=== PATIENT | female | born 1965 | race Caucasian/White ===

== ENCOUNTER 2020-08-24 07:04 | Day surgery (SDC) | payer BC ==
[~2020-08-24 07:04] MED LIST: Bupivacaine 0.5% 50 ML MDV ONE; Lidocaine 1% with EPINEPHrine 1:100,000 50 ML MDV ONE
[2020-08-24] MEDS ORDERED: Acetaminophen 500 MG Tab PO ONE (07:30)
[2020-08-24] MEDS ORDERED: Dextrose 5%-Lactated Ringers 1,000 ML IV SCH (07:45)
[2020-08-24] MEDS ORDERED: Rocuronium 50 MG/5 ML Vial ONE (07:48)
[2020-08-24] MEDS ORDERED: fentaNYL 250 MCG/5 ML SDV ONE (07:48)
[2020-08-24] MEDS ORDERED: Dexamethasone 4 MG/ML SDV ONE (07:48)
[2020-08-24] MEDS ORDERED: Succinylcholine 200 MG/10 ML MDV ONE (07:48)
[2020-08-24] MEDS ORDERED: Neostigmine Methylsulfate 1 MG/ML 5 ML Syringe ONE (07:48)
[2020-08-24] MEDS ORDERED: Ondansetron 4 MG/2 ML SDV ONE (07:48)
[2020-08-24] MEDS ORDERED: Propofol 200 MG/20 ML SDV ONE (07:48)
[2020-08-24] MEDS ORDERED: Glycopyrrolate 0.2 MG/ML 5 ML MDV ONE (07:48)
[2020-08-24] MEDS ORDERED: ceFAZolin 2 GM in Premix Bag 1 BAG IV ONE (08:30)
[2020-08-24] MEDS ORDERED: Acetaminophen/HYDROcodone 325-5 MG Tab PO ONE (11:30)
--- NOTE | 2020-08-30 14:13 | OR ---
DATE OF PROCEDURE: 08/24/2020 SURGEON: Eduin Recio MD PREOPERATIVE DIAGNOSIS: Soft tissue mass of the right mid back. POSTOPERATIVE DIAGNOSIS: Subfascial soft tissue mass of right mid back located inferior to inferior ankle and scapula. OPERATIVE PROCEDURE: Excision of subfascial soft tissue mass of right mid back ([id number]). ANESTHESIA: General. INDICATIONS FOR PROCEDURE: This is a 55-year-old presenting with an enlarging soft tissue mass on the right back. This is located just inferior to the scapula. Plan is to proceed with excision of this. With this fairly large, we will plan on general anesthetic. Potential risks of the procedure including bleeding, infection, local recurrence of the process were reviewed, and the patient wishes to proceed. DETAILS OF PROCEDURE: The patient was taken to the operating room, and after general endotracheal anesthesia was induced, she was placed in a left lateral decubitus position, and the back area was then prepped and draped. A transversely oriented incision was made and carried down through the skin and subcutaneous tissue. The mass was then noted to be behind the muscles. The trapezius and then infraspinous muscles were then in the direction of fibers and a white mass was then encountered. This was gradually dissected free and came out in what appeared to be an intact manner. This was extended slightly underneath the inferior aspect of the scapula, and otherwise was directly overlying the periosteum of the ribs. Again, mass came out intact and on measuring, it was noted to be 10.2 cm in maximal dimension. The area was irrigated with antibiotic-containing saline solution. The musculature was then reapproximated with 2-0 Vicryl stitch, subcutaneous tissue with 3-0 Vicryl stitch, and the skin with faheem. Dressing was applied. The patient was taken to the recovery room in satisfactory condition. There were no evident complications. Eduin Recio MD /[id number]
== END 2020-08-24 12:55 | disposition home or self-care (01) ==
LOC: JP.SDS 07:04
PROVIDERS: ATTEND Surgery
DX: D36.7 Benign neoplasm of other specified sites (principal)
CPT/HCPCS: 21933; A9270; J0690; J1100; J2020; J2405; J2704; J2710; J3010; J3490; J7121; 88305; 88313; 88342; J0330

== ENCOUNTER 2021-01-14 16:22 | Emergency (ER) | payer BC ==
[2021-01-14] MEDS ORDERED: fentaNYL 100 MCG/2 ML SDV IM ONE (16:50)
--- NOTE | 2021-01-14 17:01 | EDM.PDOC ---
ED HPI GENERAL MEDICAL PROBLEM - General Chief Complaint: Upper Extremity Injury/Pain Stated Complaint: LT WRIST PAIN Time Seen by Provider: 01/14/21 16:55 Source of Information: Reports: Patient, Family, RN Notes Reviewed History Limitations: Reports: No Limitations - History of Present Illness INITIAL COMMENTS - FREE TEXT/NARRATIVE: 55-year-old female presents emergency department today with complaint of left wrist pain she was cross-country skiing lost control fell on outstretched hand now she has pain in the left wrist no obvious deformity - Related Data Allergies Allergy/AdvReac Type Severity Reaction Status Date / Time No Known Allergies Allergy Verified 01/14/21 16:44 Home Meds: Home Meds Estrogens, Conjugated [Premarin] 0.625 mg VAG DAILY PRN 08/22/20 [History] Past Medical History HEENT History: Reports: Impaired Vision Cardiovascular History: Reports: None Respiratory History: Reports: None Gastrointestinal History: Reports: None Genitourinary History: Reports: None HAND CARVER History: Reports: None Musculoskeletal History: Reports: Fracture Neurological History: Reports: None Psychiatric History: Reports: None Endocrine/Metabolic History: Reports: None Hematologic History: Reports: None Immunologic History: Reports: None Oncologic (Cancer) History: Reports: None Dermatologic History: Reports: None - Infectious Disease History Infectious Disease History: Reports: Chicken Pox - Past Surgical History HEENT Surgical History: Reports: None Cardiovascular Surgical History: Reports: None Respiratory Surgical History: Reports: None GI Surgical History: Reports: Colonoscopy Female Surgical History: Reports: None Endocrine Surgical History: Reports: None Neurological Surgical History: Reports: None Musculoskeletal Surgical History: Reports: None Oncologic Surgical History: Reports: None Dermatological Surgical History: Reports: Other (See Below) Social & Family History - Family History HEENT: Reports: None Cardiac: Reports: Aneurysm Respiratory: Reports: None GI: Reports: None : Reports: None Musculoskeletal: Reports: None Neurological: Reports: None Psychiatric: Reports: Bipolar, Depression Endocrine/Metabolic: Reports: None Hematologic: Reports: None Immunologic: Reports: None Dermatologic: Reports: None Oncologic: Reports: Skin - Tobacco Use Tobacco Use Status *Q: Never Tobacco User - Caffeine Use Caffeine Use: Reports: Coffee Review of Systems - Review of Systems Review Of Systems: See Below Musculoskeletal: Reports: Joint Pain (Left wrist) ED EXAM, GENERAL - Physical Exam Exam: See Below Free Text/Narrative:: Examination of the left wrist subtle deformity is appreciated radial pulses +2 limited range of motion of the wrist secondary to pain full range of motion of all digits no tenderness at the elbow Exam Limited By: No Limitations General Appearance: Alert, WD/WN, No Apparent Distress ED TRAUMA EXTREMITY PROCEDURES - Splinting Left Upper Extremity Splint Site: Wrist Pre-Procedure NV Status: Normal Post-Procedure NV Status: Normal Splint Material: Fiberglass Splint Design: Gutter Applied & Form Fitted By: Nurse Provider Post-Splint Application NV Check: NV Status Normal, Good Position Complications: No Course - Vital Signs Last Recorded V/S: Last Vital Signs Temp 97.7 F 01/14/21 16:49 Pulse 64 01/14/21 16:49 Resp 16 01/14/21 16:49 BP 158/57 H 01/14/21 16:49 Pulse Ox 99 01/14/21 16:49 - Orders/Labs/Meds Orders: Active Orders 24 hr Category Date Time Status Wrist Comp Min 3V Lt [CR] Stat Exams 01/14/21 16:50 Ordered Meds: Medications Discontinued Medications Generic Name Dose Route Start Last Admin Trade Name Nicho PRN Reason Stop Dose Admin Fentanyl 50 mcg 01/14/21 16:50 01/14/21 16:58 Sublimaze IM 01/14/21 16:51 50 mcg ONETIME ONE Administration Departure - Departure Time of Disposition: 17:06 Disposition: Home, Self-Care 01 Condition: Fair Clinical Impression: Fracture of left radius and ulna Qualifiers: Encounter type: initial encounter Fracture type: closed Qualified Code(s): S52.92XA - Unspecified fracture of left forearm, initial encounter for closed fracture; S52.202A - Unspecified fracture of shaft of left ulna, initial encounter for closed fracture - Discharge Information Instructions: Ulnar Fracture, Radial Head Fracture Referrals: Martina Frye MD [Primary Care Provider] - Forms: ED Department Discharge Additional Instructions: Use ibuprofen for baseline pain control use hydrocodone for breakthrough pain, the orthopedics clinic will call you tomorrow morning for an appointment time call or return to the emergency department worsening of symptoms Sepsis Event Note (ED) - Evaluation Sepsis Screening Result: No Definite Risk - Focused Exam Vital Signs: Vital Signs Temp Pulse Resp BP Pulse Ox 01/14/21 16:49 97.7 F 64 16 158/57 H 99 01/14/21 16:37 97.7 F 64 16 158/57 H 99 - My Orders Last 24 Hours: My Active Orders 01/14/21 16:50 Wrist Comp Min 3V Lt [CR] Stat - Assessment/Plan Last 24 Hours: My Active Orders 01/14/21 16:50 Wrist Comp Min 3V Lt [CR] Stat Plan: Assessment Acuity = acute Site and laterality = left radius ulnar fracture distal closed Etiology = trauma cross-country skiing Manifestations = none Location of injury = Home Lab values = x-ray describes fracture above Plan Splinted set up with orthopedics on Friday hydrocodone 1 tab p.o. 3 times daily as needed total #10 provided for pain control This note was dictated using [employer] voice recognition software please call with any questions on syntax or grammar.
--- NOTE | 2021-01-15 09:59 | CR ---
Wrist Comp Min 3V Lt CLINICAL HISTORY: Fall, pain FINDINGS: There is a comminuted fracture of the distal radius and a fracture through the base of the ulnar styloid. There is some dorsal angulation. Bones appear osteopenic. IMPRESSION: COMMINUTED fracture the distal radius and fracture of the ulnar styloid
== END 2021-01-14 17:26 | disposition home or self-care (01) ==
LOC: JP.ED 16:22
DX: S52.502A Unspecified fracture of the lower end of left radius, initial encounter for closed fracture (principal); S52.612A Displaced fracture of left ulna styloid process, initial encounter for closed fracture; W01.0XXA Fall on same level from slipping, tripping and stumbling without subsequent striking against object, initial encounter
CPT/HCPCS: 29125; 73110; 96372; 99283; J3010

== ENCOUNTER 2021-01-17 05:58 | Day surgery (SDC) | payer BC ==
[2021-01-17] MEDS ORDERED: Nozin Nasal Sanitizer NASBOTH ONE (06:30)
[2021-01-17] MEDS ORDERED: Bupivacaine 0.5%/EPINEPHrine 1:200,000 50 ML MDV ONE (06:45)
[2021-01-17] MEDS ORDERED: Bupivacaine 0.5% 50 ML MDV ONE (06:45)
[2021-01-17] MEDS ORDERED: Lactated Ringers 1,000 ML IV SCH (07:00)
[2021-01-17] MEDS ORDERED: Midazolam 1 MG/ML 2 ML SDV ONE (07:19)
[2021-01-17] MEDS ORDERED: Propofol 200 MG/20 ML SDV ONE (07:19)
[2021-01-17] MEDS ORDERED: fentaNYL 100 MCG/2 ML SDV ONE ×2 (07:19→08:12)
[2021-01-17] MEDS ORDERED: Dexamethasone 4 MG/ML SDV ONE (07:20)
[2021-01-17] MEDS ORDERED: Ondansetron 4 MG/2 ML SDV ONE (07:20)
[2021-01-17] MEDS ORDERED: ceFAZolin 2 GM in Premix Bag 1 BAG IV ONE (08:00)
[2021-01-17] MEDS ORDERED: Ketorolac 60 MG/2 ML SDV ONE (08:13)
[2021-01-17] MEDS ORDERED: Acetaminophen/HYDROcodone 325-5 MG Tab PO ONE (09:00)
--- NOTE | 2021-01-24 22:30 | OR ---
DATE OF PROCEDURE: 01/17/2021 SURGEON: Dylon Wang MD PREOPERATIVE DIAGNOSIS: Displaced left distal radius fracture. POSTOPERATIVE DIAGNOSIS: Displaced left distal radius fracture, extra-articular. PROCEDURE: Closed reduction and percutaneous pinning, left distal radius. ANESTHESIA: General. INDICATIONS: Adriane is a 55-year-old female who sustained a fall while cross-country skiing resulting in a dorsally displaced fracture of her distal radius. She now presents to the operating room for a closed reduction and possible pinning of the distal radius. Risks, benefits, and potential complications of the procedure were discussed. PROCEDURE IN DETAIL: After adequate anesthesia was obtained, a closed reduction was performed on the left wrist. Fluoroscopic imaging was used to assess the reduction and stability. It showed some persistent dorsal angulation and mild comminution of the dorsal cortex. A decision was made to proceed with percutaneous pinning in order to stabilize this and prevent collapse into dorsal angulation. The arm was then prepped and draped in a sterile fashion. A 0.062 K-wire was then advanced through the radial styloid and across the fracture site with the wrist in a reduced position. Position was confirmed using image intensifier. A 2nd pin was then placed in a similar fashion. Pins were then cut and Jurgan balls were placed on the ends of the pins. Pin sites were dressed with Xeroform gauze and padded with 4x4s and a well-padded volar splint was then applied. The patient tolerated procedure well. There were no complications. Taken from the recovery room in stable condition. Dylon Wang MD /[id number]
== END 2021-01-17 10:10 | disposition home or self-care (01) ==
LOC: JP.SDS 05:58
PROVIDERS: ATTEND Specialist
DX: S52.552A Other extraarticular fracture of lower end of left radius, initial encounter for closed fracture (principal); Z01.812 Encounter for preprocedural laboratory examination; Z20.822 Contact with and (suspected) exposure to COVID-19; V00.321A Fall from snow-skis, initial encounter; Y93.24 Activity, cross country skiing; Z98.890 Other specified postprocedural states
CPT/HCPCS: 36415; 76000; 80048; 85027; A9270-GY; J0690; J1100; J1885; J2250; J2405; J2704; J3010; J3490; J7120; U0002

== ENCOUNTER 2023-12-26 08:42 | Day surgery (SDC) | payer BC ==
[2023-12-26] MEDS: Sodium Chloride 0.9% 1,000 ML IV SCH (09:17)
[2023-12-26] MEDS ORDERED: Propofol 200 MG/20 ML SDV ONE (10:25)
[2023-12-26] MEDS ORDERED: Midazolam 1 MG/ML 2 ML SDV ONE (10:25)
[2023-12-26] MEDS ORDERED: fentaNYL 100 MCG/2 ML SDV ONE (10:25)
[2023-12-26] MEDS: Ondansetron 4 MG/2 ML SDV IVPUSH ONE (12:13)
== END 2023-12-26 13:45 | disposition home or self-care (01) ==
LOC: JP.SDS 08:42
PROVIDERS: ATTEND Surgery
DX: Z12.11 Encounter for screening for malignant neoplasm of colon (principal); D12.8 Benign neoplasm of rectum; K64.8 Other hemorrhoids; Z80.0 Family history of malignant neoplasm of digestive organs
CPT/HCPCS: 45385; 88305; J2250; J2405; J2704; J3010; J7030